=== PATIENT | female | born 1995 | race Asian ===

== ENCOUNTER 2016-11-13 15:06 | Observation (INO) | payer BC, OTHER ==
[2016-11-13] MEDS ORDERED: Levofloxacin 750 MG IVPREMIX(* 750 MG/150 ML BAG IVPB ONE (17:16)
[2016-11-13] MEDS ORDERED: NS 0.9% 1000 ML* 1,000 ML IV ONE ×2 (17:16→20:38)
[2016-11-13 18:13] LABS: Hematocrit 31 % (35-47); Hemoglobin 10.3 g/dl (12.0-16.0); Mean Corpuscular HGB Conc 33 g/dl (31-36); Mean Corpuscular Hemoglobin 28 pg (27-31); Mean Corpuscular Volume 84 fL (80-97); Mean Platelet Volume 9 um3 (7.4-10.4); Red Blood Count 3.71 10^6/ul (4.0-5.4); Red Cell Distribution Width 13 % (10.5-15); White Blood Count 18.6 10^3/ul (3.5-10.8)
[2016-11-13 18:18] LABS: ALT 10 U/L (7-52); AST 15 U/L (13-39); Add Diff/Slide Review? Slide Review Added; Albumin 3.5 g/dL (3.2-5.2); Alkaline Phosphatase 60 U/L (34-104); Anion Gap 10 mmol/L (2-11); BUN/Creatinine Ratio 9.1 (8-20); Blood Urea Nitrogen 22 mg/dL (6-24); C Reactive Protein 262.48 mg/L (< 5.00); CO2 Carbon Dioxide 22 mmol/L (22-32); Calcium 9.1 mg/dL (8.6-10.3); Chloride 97 mmol/L (101-111); Comments Flag Yes; EGFR African American 32.6 (>60); EGFR Non-African American 25.4 (>60); Globulin 4.2 g/dL (2-4); Glucose 119 mg/dL (70-100); Potassium 3.6 mmol/L (3.5-5.0); Sodium 129 mmol/L (133-145); Total Protein 7.7 g/dL (6.4-8.9)
[2016-11-13 18:20] LABS: Troponin I 0.01 ng/mL (<0.04)
[2016-11-13 18:53] LABS: Immature Granulocytes 19 % (0-9); Neutrophil % 66 % (38-83)
[2016-11-13 18:54] LABS: RBC Morphology Normal (Normal)
[2016-11-13 19:31] LABS: Urine Bacteria 1+ (Absent); Urine Bilirubin Negative (Negative); Urine Glucose Negative (Negative); Urine Nitrite Negative (Negative)
--- NOTE | 2016-11-13 19:50 | RAD ---
INDICATION: Left flank pain COMPARISON: None TECHNIQUE: Longitudinal and transverse scans of the left kidney were obtained. FINDINGS: Left kidney: The left kidney is normal in size and echogenicity. No renal masses, definite calculi calculi, or hydronephrosis is seen. Other: There are no perinephric collections IMPRESSION: NO DEFINITIVE CALCULI OR EVIDENCE OF HYDRONEPHROSIS
[2016-11-13] MEDS ORDERED: Ondansetron INJ* 2 MG/ML VIAL IV PRN (21:23)
[2016-11-13] MEDS ORDERED: HYDROcodone/ACETAMIN 5-325 MG* 1 TAB PO PRN (21:23)
[2016-11-13] MEDS: NS 0.9% 1000 ML* 1,000 ML IV SCH (22:02)
--- NOTE | 2016-11-13 22:06 | ED ---
Brittaney Duncan Alfonso, scribed for Brett Sanchez MD on 11/13/16 at 1705 . Abdominal Pain/Female - HPI Summary HPI Summary: This patient is a 21 year old F [facility] with a chief complaint of left flank pain since 4-5 days ago. The CC is described as sharp, throbbing, and constant pain. The patient rates the pain 5/ 10 in severity. Symptoms aggravated by sitting straight and walking, and alleviated by Motrin. Patient reports diarrhea (2-3 per day), nausea, decreased appetite, chills, and a fever (103 per urgent care for which given Ibuprofen). Patient denies urinary symptoms and dysuria. LMP was end of September to beginning of October. Currently takes BCP. - History of Current Complaint Chief Complaint: EDAbdPain Stated Complaint: FEVER,POSS KIDNEY INFECTION/[facility] BY [facility] Time Seen by Provider: 11/13/16 17:02 Hx Obtained From: Patient Onset/Duration: Lasting Days - 4-5 days ago Timing: Constant Severity Currently: Moderate Pain Intensity: 5 Pain Scale Used: 0-10 Numeric Location: Flank - Left Character: Sharp, Other: - Throbbing Aggravating Factor(s): Other: - sitting straight and walking Alleviating Factor(s): Medications - Motrin, Other: Associated Signs and Symptoms: Positive: Other: - Patient reports diarrhea (2-3 per day), nausea, decreased appetite, chills, and a fever (103 per urgent care for which given Ibuprofen. Patient denies dysuria. Allergies/Adverse Reactions: Allergies Allergy/AdvReac Type Severity Reaction Status Date / Time No Known Allergies Allergy Verified 05/18/16 12:11 Home Medications: Home Medications Drospirenone-Ethinyl Estradiol [Sandhya 3-0.02 mg] 1 tab PO BEDTIME 11/13/16 [ History Confirmed 11/13/16] PMH/Surg Hx/FS Hx/Imm Hx Endocrine/Hematology History: Denies: Hx Diabetes Cardiovascular History: Denies: Hx Hypertension, Hx Pacemaker/ICD Sensory History: Denies: Hx Hearing Aid Psychiatric History: Denies: Hx Panic Disorder Infectious Disease History: No Infectious Disease History: Denies: Traveled Outside the [place] in Last 30 Days - Family History Known Family History: Negative: Cardiac Disease, Hypertension, Diabetes - Social History Occupation: Student Alcohol Use: Rare Hx Substance Use: No Hx Tobacco Use: No Review of Systems Positive: Fever - per Urgent Care, Chills Positive: Abdominal Pain, Diarrhea, Nausea, Other - decreased appetite Positive: no symptoms reported. Negative: dysuria All Other Systems Reviewed And Are Negative: Yes Physical Exam Triage Information Reviewed: Yes Vital Signs On Initial Exam: Initial Vitals Temp Pulse Resp BP Pulse Ox 98.9 F 134 20 157/111 97 11/13/16 15:09 11/13/16 15:09 11/13/16 15:09 11/13/16 15:09 11/13/16 15:09 Vital Signs Reviewed: Yes Appearance: Positive: Well-Appearing, No Pain Distress Skin: Positive: Warm, Skin Color Reflects Adequate Perfusion, Dry Head/Face: Positive: Normal Head/Face Inspection Eyes: Positive: Normal ENT: Positive: Normal ENT inspection Neck: Positive: Supple, Nontender Respiratory/Lung Sounds: Positive: Clear to Auscultation, Breath Sounds Present Cardiovascular: Positive: Tachycardia Abdomen Description: Positive: Soft, Other: - Left CVA Tenderness, mild LUQ tenderness Bowel Sounds: Positive: Present Musculoskeletal: Positive: Normal Neurological: Positive: Normal, Sensory/Motor Intact, Alert, Oriented to Person Place, Time, CN Intact II-III Psychiatric: Positive: Affect/Mood Appropriate Diagnostics - Vital Signs Vital Signs Temp Pulse Resp BP Pulse Ox 11/13/16 16:50 97.7 F 102 16 90/57 100 11/13/16 15:09 98.9 F 134 20 157/111 97 - Laboratory Lab Results: Lab Results 11/13/16 11/13/16 11/13/16 Range/Units 17:46 17:46 17:46 WBC 18.6 H (3.5-10.8) 10^3/ul RBC 3.71 L (4.0-5.4) 10^6/ul Hgb 10.3 L (12.0-16.0) g/dl Hct 31 L (35-47) % MCV 84 (80-97) fL MCH 28 (27-31) pg MCHC 33 (31-36) g/dl RDW 13 (10.5-15) % Plt Count 157 (150-450) 10^3/ul MPV 9 (7.4-10.4) um3 Immature Gran % (Auto) 19 H (0-9) % Neut % (Auto) 87.8 H (38-83) % Lymph % (Auto) 4.2 L (25-47) % Aiken % (Auto) 7.6 (1-9) % Eos % (Auto) 0.2 (0-6) % Baso % (Auto) 0.2 (0-2) % Absolute Neuts (auto) 16.3 H (1.5-7.7) 10^3/ul Absolute Lymphs (auto) 0.8 L (1.0-4.8) 10^3/ul Absolute Monos (auto) 1.4 H (0-0.8) 10^3/ul Absolute Eos (auto) 0 (0-0.6) 10^3/ul Absolute Basos (auto) 0 (0-0.2) 10^3/ul Absolute Nucleated RBC 0 10^3/ul Neutrophils % 66 (38-83) % Band Neutrophils % 19 H (0-8) % Lymphocytes % 5 L (25-47) % Monocytes % 10 (0-13) % Nucleated RBC % 0 Normal RBC Morphology Normal (Normal) INR (Anticoag Therapy) 1.02 (0.89-1.11) Sodium 129 L (133-145) mmol/L Potassium 3.6 (3.5-5.0) mmol/L Chloride 97 L (101-111) mmol/L Carbon Dioxide 22 (22-32) mmol/L Anion Gap 10 (2-11) mmol/L BUN 22 (6-24) mg/dL Creatinine 2.41 H (0.51-0.95) mg/dL Est GFR ( Amer) 32.6 (>60) Est GFR (Non-Af Amer) 25.4 (>60) BUN/Creatinine Ratio 9.1 (8-20) Glucose 119 H (70-100) mg/dL Lactic Acid (0.5-2.0) mmol/L Calcium 9.1 (8.6-10.3) mg/dL Total Bilirubin 0.50 (0.2-1.0) mg/dL AST 15 (13-39) U/L ALT 10 (7-52) U/L Alkaline Phosphatase 60 (34-104) U/L Troponin I 0.01 (<0.04) ng/mL C-Reactive Protein 262.48 H (< 5.00) mg/L Total Protein 7.7 (6.4-8.9) g/dL Albumin 3.5 (3.2-5.2) g/dL Globulin 4.2 H (2-4) g/dL Albumin/Globulin Ratio 0.8 L (1-3) Beta HCG, Quant < 0.60 mIU/mL Urine Color Urine Appearance Urine pH (5-9) Ur Specific Dorado (1.010-1.030) Urine Protein (Negative) Urine Ketones (Negative) Urine Blood (Negative) Urine Nitrate (Negative) Urine Bilirubin (Negative) Urine Urobilinogen (Negative) Ur Leukocyte Esterase (Negative) Urine WBC (Auto) (Absent) Urine RBC (Auto) (Absent) Ur Squamous Epith Cells (Absent) Urine Bacteria (Absent) Urine Glucose (Negative) 11/13/16 11/13/16 Range/Units 17:46 19:07 WBC (3.5-10.8) 10^3/ul RBC (4.0-5.4) 10^6/ul Hgb (12.0-16.0) g/dl Hct (35-47) % MCV (80-97) fL MCH (27-31) pg MCHC (31-36) g/dl RDW (10.5-15) % Plt Count (150-450) 10^3/ul MPV (7.4-10.4) um3 Immature Gran % (Auto) (0-9) % Neut % (Auto) (38-83) % Lymph % (Auto) (25-47) % Aiken % (Auto) (1-9) % Eos % (Auto) (0-6) % Baso % (Auto) (0-2) % Absolute Neuts (auto) (1.5-7.7) 10^3/ul Absolute Lymphs (auto) (1.0-4.8) 10^3/ul Absolute Monos (auto) (0-0.8) 10^3/ul Absolute Eos (auto) (0-0.6) 10^3/ul Absolute Basos (auto) (0-0.2) 10^3/ul Absolute Nucleated RBC 10^3/ul Neutrophils % (38-83) % Band Neutrophils % (0-8) % Lymphocytes % (25-47) % Monocytes % (0-13) % Nucleated RBC % Normal RBC Morphology (Normal) INR (Anticoag Therapy) (0.89-1.11) Sodium (133-145) mmol/L Potassium (3.5-5.0) mmol/L Chloride (101-111) mmol/L Carbon Dioxide (22-32) mmol/L Anion Gap (2-11) mmol/L BUN (6-24) mg/dL Creatinine (0.51-0.95) mg/dL Est GFR ( Amer) (>60) Est GFR (Non-Af Amer) (>60) BUN/Creatinine Ratio (8-20) Glucose (70-100) mg/dL Lactic Acid 1.7 (0.5-2.0) mmol/L Calcium (8.6-10.3) mg/dL Total Bilirubin (0.2-1.0) mg/dL AST (13-39) U/L ALT (7-52) U/L Alkaline Phosphatase (34-104) U/L Troponin I (<0.04) ng/mL C-Reactive Protein (< 5.00) mg/L Total Protein (6.4-8.9) g/dL Albumin (3.2-5.2) g/dL Globulin (2-4) g/dL Albumin/Globulin Ratio (1-3) Beta HCG, Quant mIU/mL Urine Color Lizeth Urine Appearance Cloudy Urine pH 5.0 (5-9) Ur Specific Dorado 1.013 (1.010-1.030) Urine Protein 2+(100 mg/dl) H (Negative) Urine Ketones Negative (Negative) Urine Blood 2+ H (Negative) Urine Nitrate Negative (Negative) Urine Bilirubin Negative (Negative) Urine Urobilinogen Negative (Negative) Ur Leukocyte Esterase 3+ H (Negative) Urine WBC (Auto) 3+(>20/hpf) H (Absent) Urine RBC (Auto) 3+(>10/hpf) H (Absent) Ur Squamous Epith Cells Present H (Absent) Urine Bacteria 1+ H (Absent) Urine Glucose Negative (Negative) Result Diagrams: 11/13/16 17:46 11/13/16 17:46 Lab Statement: Any lab studies that have been ordered have been reviewed, and results considered in the medical decision making process. - Additional Comments Diagnostic Additional Comments: Renal US reveals, per radiologist, NO DEFINITIVE CALCULI OR EVIDENCE OF HYDRONEPHROSIS. Abdominal Pain Fem Course/Dx - Course Course Of Treatment: Ms. Caruso presented with left flank pain and was found to have a probable pyelonephritis. On arrival she was tachycardic, slightly hypotensive and had a documented temp of 103 at [facility]. She was treated aggresively wth IV NS and antibiotics and admitted to the hospitalist service. - Diagnoses Provider Diagnoses: Pyelonephritis, Sepsis - Provider Notifications Discussed Care Of Patient With: Maggie Sandoval Time Discussed With Above Provider: 21:20 Instructed by Provider To: Other - Consulted Dr. Sandoval (hospitalist) who agrees to admit. - Critical Care Time Critical Care Time: 30-74 min Discharge - Discharge Plan Condition: Stable Disposition: ADMITTED TO [facility] The documentation as recorded by the Brittaney landeros Alfonso accurately reflects the service I personally performed and the decisions made by , Brett Sanchez MD.
[2016-11-13] MEDS: Acetaminophen TAB* 325 MG PO PRN (23:16)
--- NOTE | 2016-11-14 00:49 | HP ---
CC: [facility]* HISTORY AND PHYSICAL: DATE OF ADMISSION: 11/13/16 PRIMARY CARE PROVIDER: [facility]. CHIEF COMPLAINT: Left flank and abdominal pain as well as fevers. HISTORY OF PRESENT ILLNESS: Ms. 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 The patient at that point was found to have fever and elevated heart rate as well as complained of chills, left-sided flank pain, abdominal pain, nausea, poor appetite and diarrhea. Because of all these symptoms, she was sent to Urgent Care. At Urgent Care, she was evaluated and sent to the emergency room for further evaluation. The patient states that she has been having nausea and poor appetite over the last few days as well as diarrhea. She has been incredibly chilled. She has been having left low back/ flank pain and left lower abdominal pain. The patient notes that it is difficult to stand up straight due to the discomfort. In addition to all of the issues, also complaining of headache. PAST MEDICAL HISTORY: None. PAST SURGICAL HISTORY: None. MEDICATIONS: Sandhya 3-0.02 mg 1 tab p.o. q.h.s. ALLERGIES: TOPICAL SULFA. FAMILY HISTORY: Mom is living, she is 55 and healthy. Dad is also living, he is 54 and healthy. SOCIAL HISTORY: The patient does not smoke. She drinks alcohol on occasion. 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 She is not . No children. She indicates that her mother, Aliza, would be her healthcare proxy. REVIEW OF SYSTEMS: The patient admits to fevers and anorexia as well as chills. No chest pain, no shortness of breath. She admits to the abdominal pain , diarrhea, nausea as above. No hematuria, no dysuria. She admits to generalized weakness. No sudden changes in vision. No dysphagia. She does complain of back pain. No rashes. No anxiety or depression. PHYSICAL EXAMINATION GENERAL: The patient is a well-developed young female in no acute distress. VITAL SIGNS: Blood pressure 89/55, pulse 99, respirations 16, temp 99.3, O2 sat 100% on room air. HEENT: Pupils are equal, they are round, they react to light. Extraocular muscles intact. Oropharynx is clear. Oral mucosa is moist. NECK: There is no submandibular, cervical or supraclavicular adenopathy. Thyroid is not enlarged. No thyroid nodules noted. PULMONARY: Lungs are clear to auscultation bilaterally. CARDIAC: Normal S1 and S2. Heart rate is regular and tachycardic. I do not appreciate any murmurs. ABDOMEN: Bowel sounds present. Abdomen is soft, nondistended. Mildly tender to palpation in the left lower quadrant, left upper quadrant and there is CVA tenderness on the left. EXTREMITIES: There is no lower extremity edema. MUSCULOSKELETAL: There is no cyanosis or clubbing of the digits. There is full active range of motion of all 4 extremities. NEURO: Cranial nerves II through XII are grossly intact. Sensation is intact to light touch throughout. Strength is 5/5 and symmetric to both upper and lower extremities bilaterally. PSYCH: The patient is alert. She is oriented x3. Affect appears appropriate. SKIN: Warm and dry. There are no rashes. DIAGNOSTIC STUDIES/LAB DATA: WBC 18.6, hemoglobin 10.3, hematocrit 31, platelets 157,000, bands 19%. INR 1.02. Sodium 129, potassium 3.6, chloride 97 , CO2 22, BUN 22, creatinine 2.41, glucose 119, lactic acid 1.7, calcium 9.1, bilirubin 0.5, AST 15, ALT 10, alk phos 60. Troponin 0.01. CRP 262.48. Albumin 3.5. Urinalysis reveals a specific gravity of 1.013, it is cloudy urine with 2+ protein, 2+ blood, 3+ leukocyte esterase, 3+ wbc's, 3+ rbc's, and 1+ bacteria. Renal ultrasound, no definitive calculi or evidence of hydronephrosis. ASSESSMENT AND PLAN: Ms. Caruso is a 21-year-old female who presented to [facility] for a routine medical clearance exam and was found to be febrile, tachycardic and with numerous complaints including left flank pain, chills, nausea, poor appetite and diarrhea and was referred to then urgent care and ultimately the emergency room for evaluation. 1. Probable pyelonephritis. At this time, I suspect the patient's issue leading to her symptoms as left-sided pyelonephritis. Additionally, the patient does meet sepsis criteria at the time of admission. The patient is septic from pyelonephritis with hypotension and elevated creatinine. The patient's SOFA score total is 2. The patient will receive aggressive IV fluid hydration. She will receive another liter of normal saline as a bolus, then followed by 125 mL per hour. She will be continued on Levaquin for now. Urine culture will need to be obtained. 2. Acute renal failure. The patient's creatinine is markedly elevated for this young female. I suspect this is related to sepsis. No clear hydronephrosis or obstruction was noted on ultrasound. Followup labs will be obtained tomorrow morning to ensure improvement in her creatinine. 3. DVT prophylaxis. According to the Adult Thrombosis Prophylaxis Risk Factor Assessment Guide, the patient has a total risk factor score of 1 making her a low risk. Ambulation will be utilized as DVT prophylaxis. 4. Code status is full and again the patient indicates that her mother, Aliza, would be her healthcare proxy. TIME SPENT: 55 minutes was spent admitting this patient. [id number]/[facility] #: [id number] MTDD
[2016-11-14] MEDS: NS 0.9% 1000 ML* 1,000 ML IV SCH ×2 (06:01→15:36)
[2016-11-14] MEDS: Acetaminophen TAB* 325 MG PO PRN ×2 (06:05→15:34)
[2016-11-14 06:38] LABS: Hematocrit 28 % (35-47); Hemoglobin 9.1 g/dl (12.0-16.0); Mean Corpuscular HGB Conc 33 g/dl (31-36); Mean Corpuscular Hemoglobin 28 pg (27-31); Mean Corpuscular Volume 84 fL (80-97); Mean Platelet Volume 9 um3 (7.4-10.4); Red Blood Count 3.28 10^6/ul (4.0-5.4); Red Cell Distribution Width 13 % (10.5-15)
[2016-11-14 06:54] LABS: BUN/Creatinine Ratio 11.4 (8-20); Calcium 8.1 mg/dL (8.6-10.3); EGFR Non-African American 47.5 (>60); Potassium 3.7 mmol/L (3.5-5.0)
--- NOTE | 2016-11-14 12:13 | PN ---
Subjective Date of Service: 11/14/16 Interval History: Patient seen this morning. Reports feeling better, still with some chills overnight, back pain has improved. No dysuria. Family History: Unchanged from Admission Social History: Unchanged from Admission Past Medical History: Unchanged from Admission Objective Active Medications: Acetaminophen (Tylenol Tab*) 650 mg PO Q4H PRN Hydrocodone Bitart/Acetaminophen (Crump 5-325 Tab*) 1 tab PO Q4H PRN Sodium Chloride (Ns 0.9% 1000 Ml*) 1,000 mls @ 125 mls/hr IV PER RATE LINN Levofloxacin/Dextrose (Levaquin 500 Mg Ivpremix(*)) 500 mg in 100 mls @ 100 mls /hr IVPB Q24H LINN Ondansetron HCl (Zofran Inj*) 4 mg IV Q6H PRN Vital Signs 11/13/16 11/13/16 11/13/16 21:55 22:04 22:25 Temperature 98.0 F 98.0 F Pulse Rate 103 103 Respiratory 18 18 18 Rate Blood Pressure 89/50 89/50 (mmHg) O2 Sat by Pulse 100 100 Oximetry 11/13/16 11/14/16 11/14/16 23:24 04:26 04:31 Temperature 98.1 F 98.1 F 98.2 F Pulse Rate 123 101 103 Respiratory 18 16 18 Rate Blood Pressure 97/61 68/32 79/50 (mmHg) O2 Sat by Pulse 100 100 100 Oximetry 11/14/16 11/14/16 11/14/16 04:36 04:45 07:51 Temperature 98.1 F 98.1 F 98.8 F Pulse Rate 101 99 101 Respiratory 18 16 20 Rate Blood Pressure 98/62 96/60 86/45 (mmHg) O2 Sat by Pulse 100 100 99 Oximetry Oxygen Devices in Use Now: None Appearance: Young, F, laying in bed in NAD Eyes: No Scleral Icterus Ears/Nose/Mouth/Throat: Mucous Membranes Moist Neck: NL Appearance and Movements; NL JVP Respiratory: Symmetrical Chest Expansion and Respiratory Effort, Clear to Auscultation Cardiovascular: - - Mild tachycardia, no m/g/r Abdominal: NL Sounds; No Tenderness; No Distention, - - L CVA tenderness Lymphatic: No Cervical Adenopathy Extremities: No Edema Skin: No Rash or Ulcers Neurological: Alert and Oriented x 3 Result Diagrams: 11/14/16 05:56 11/14/16 05:56 Assess/Plan/Problems-Billing Assessment: Sepsis 2/2 pyelonephritis in a 21 yo F - Patient Problems (1) Sepsis Current Visit: Yes Comment: 2/2 pyelonephritis. Symptoms improving. Continue IV ABx today (will get dose late afternoon). Bandemia resolved, still with mild leukocytosis. BPs a bit soft and still with some tachycardia. PO intake improving. (2) CONTRERAS (acute kidney injury) Current Visit: Yes Comment: 2/2 sepsis, dehydration, improving with IVF. (3) DVT prophylaxis Current Visit: Yes Comment: Ambulate Status and Disposition: Will give additional dose of IV ABx today. Monitor VS over the afternoon, discharge later today vs tomorrow.
[2016-11-14] MEDS ORDERED: Ibuprofen TAB* 200 MG PO ONE (17:05)
[2016-11-14] MEDS ORDERED: Levofloxacin 500 MG IVPREMIX(* 500 MG/100 ML BAG IVPB SCH ×2 (18:00→20:00)
[2016-11-15] MEDS: NS 0.9% 1000 ML* 1,000 ML IV SCH ×2 (01:09→09:15)
[2016-11-15] MEDS: Acetaminophen TAB* 325 MG PO PRN (03:51)
[2016-11-15 05:39] LABS: Hematocrit 27 % (35-47); Hemoglobin 8.9 g/dl (12.0-16.0); Mean Corpuscular HGB Conc 33 g/dl (31-36); Mean Corpuscular Hemoglobin 27 pg (27-31); Mean Corpuscular Volume 84 fL (80-97); Mean Platelet Volume 9 um3 (7.4-10.4); Red Blood Count 3.27 10^6/ul (4.0-5.4); Red Cell Distribution Width 14 % (10.5-15); White Blood Count 13.9 10^3/ul (3.5-10.8)
[2016-11-15 05:55] LABS: BUN/Creatinine Ratio 8.9 (8-20); Calcium 8.1 mg/dL (8.6-10.3); EGFR Non-African American 69.2 (>60); Potassium 3.1 mmol/L (3.5-5.0)
[2016-11-15 08:03] VITALS: BP 98/59
--- NOTE | 2016-11-15 09:39 | DCNOTE ---
Patient seen this morning. Says she has been feeling better. Still with some L flank pain at times but improved. Some chills last night. On exam, RRR, s1 and s2 present, no m/g/r, lungs CTA B/L, no w/r/r, abd soft, NTND, BS+, L CVA tenderness. Fever yesterday afternoon, none since. BPs a bit soft but stable, tachycardia improved. Plan to discharge home today on oral Cipro x12 additional days.
--- NOTE | 2016-11-15 10:11 | DS ---
DATE OF ADMISSION: 11/13/2016. DATE OF DISCHARGE: 11/15/2016. PRIMARY CARE PHYSICIAN: Olinda Florez. PRINCIPAL DISCHARGE DIAGNOSIS: Sepsis secondary to pyelonephritis, acute kidney injury. DISCHARGE MEDICATION REGIMEN: 1. Ciprofloxacin 500 mg by mouth two times daily. 2. Sandhya one tablet by mouth at bedtime. STUDIES DONE DURING HOSPITALIZATION: Renal ultrasound: Impression: No definitive calculi or evide nce of hydronephrosis. HISTORY OF PRESENT ILLNESS AND HOSPITAL SUMMARY: Please see the full history and physical by Dr. Shahnaz Sandoval for full details. Briefly, Ms. Caruso is a 21-year- old female who presented to the hosp ital with a few days of chills and left-sided flank pain. She was first evaluated at Urgent Care, t hen sent to the hospital. In the emergency department, she was found to have a significant leukocyt osis of 18.6 as well as an acute kidney injury with a creatinine of 2.41. She had an elevated CRP a nd a positive urinalysis. She underwent a renal ultrasound which rule out any hydronephrosis and e patient was diagnosed with pyelonephritis and started on IV antibiotics and aggressive fluid resus citation. Over the following days, her leukocytosis improved and her CONTRERAS resolved. She was urinati ng normally. She denied any dysuria. She had a fever of 101.6 the afternoon prior to the day of di scharge. This resolved with Tylenol. The patient is ambulatory, has been eating and drinking well here in the hospital. I think it is safe to convert her to oral antibiotics to complete a two week course at home. She did not have any growth on her urine culture. She will be discharged on Ciprof loxacin and she will follow-up with [facility] as an outpatient. She was instructed to alternat e between Tylenol and ibuprofen as needed for fever and/or pain. Total time spent on this discharge was 35 minutes. This is a summary of the hospitalization. Please see the full medical record for further details. [id number]/[facility] #: [id number]
== END 2016-11-15 10:30 | disposition home or self-care (01) ==
LOC: ED 15:06 → MED 20:38
PROVIDERS: ADMIT Hospitalist; ATTEND Hospitalist
DX: N10 Acute pyelonephritis (principal); A41.9 Sepsis, unspecified organism; N17.9 Acute kidney failure, unspecified; R10.30 Lower abdominal pain, unspecified; R00.0 Tachycardia, unspecified; E86.0 Dehydration; D72.829 Elevated white blood cell count, unspecified
CPT/HCPCS: 36415; 76775; 80048; 80053; 81003; 81015; 83605; 84484; 84702; 85025; 85027; 85610; 86140; 87040; 87086; 96374; 99284; A9270-GY; G0378; J1956